=== PATIENT | female | born 1930 | race Caucasian/White ===

== ENCOUNTER → 2017-10-26 | Outpatient (CLI) | payer MEDICARE, BC ==
[~2017-10-26] MED LIST: ADVIL200 MG PO; CITRACAL + D CA1 TAB PO; MOTRIN 800800 MG/TAB PO; SENNA8.6 MG PO
[2017-10-26 17:00] LABS: BASO # 0.1 (0.0-0.2); BASO % 1.4 % (0.0-2.0); EOS # 0.3 (0.0-0.7); EOS % 3.1 % (0-4.0); GRAN # 5.5 (1.4-6.5); GRAN % 63.6 % (42.2-75.2); HEMATOCRIT 41.7 % (37.0-47.0); HEMOGLOBIN 14.2 g/dl (12.5-16.0); LYMPH # 1.9 (1.2-3.4); LYMPH % 22.4 % (20.0-51.0); MEAN CELL VOLUME 94 fl (80.0-100.0); MEAN CORPUSCULAR HEMOGLOBIN 32 pg (27.0-31.0); MEAN CORPUSCULAR HGB CONC 34 g/dl (33.0-37.0); MEAN PLATELET VOLUME 10.8 fl (7.4-10.4); MONO # 0.8 (0.1-0.6); MONO % 9.3 % (1.7-9.3); PLATELET COUNT 262 K/mm3 (130-400); RED BLOOD COUNT 4.42 M/mm3 (4.10-5.30); WHITE BLOOD COUNT 8.6 K/mm3 (4.8-10.8)
[2017-10-26 17:06] LABS: ADJUSTED CALCIUM 10.1 mg/dL (8.4-10.2); ALBUMIN 3.8 gm/dL (3.5-5.0); BILIRUBIN,TOTAL 0.6 mg/dL (0.0-1.0); CALCIUM 9.9 mg/dL (8.4-10.2); CREATININE, serum 0.83 mg/dL (0.52-1.25); MAGNESIUM 2.1 mg/dL (1.6-2.3); POTASSIUM 4.2 mmol/L (3.4-5.0)
== END ==
LOC: ZCOL.LAB 16:55
PROVIDERS: Internal Medicine
DX: R00.0 Tachycardia, unspecified (principal)

== ENCOUNTER → 2019-10-15 | Outpatient (CLI) | payer MEDICARE, BC ==
[2019-10-15 16:48] LABS: BASO # 0.1 (0.0-0.2); BASO % 0.8 % (0.0-2.0); EOS # 0.2 (0.0-0.7); EOS % 1.5 % (0-4.0); GRAN # 6.2 (1.4-6.5); GRAN % 62.3 % (42.2-75.2); HEMOGLOBIN 14.1 g/dl (12.5-16.0); LYMPH # 2.5 (1.2-3.4); LYMPH % 24.9 % (20.0-51.0); MEAN CELL VOLUME 96 fl (80.0-100.0); MEAN CORPUSCULAR HEMOGLOBIN 32 pg (27.0-31.0); MEAN CORPUSCULAR HGB CONC 34 g/dl (33.0-37.0); MONO % 10.3 % (1.7-9.3); PLATELET COUNT 244 K/mm3 (130-400); RED BLOOD COUNT 4.39 M/mm3 (4.10-5.30); REDCELL DISTRIBUTION WIDTH-CV 12.3 % (11.5-14.5)
[2019-10-15 16:59] LABS: ALBUMIN 3.7 gm/dL (3.5-5.0); BILIRUBIN,TOTAL 0.4 mg/dL (0.0-1.0); CALCIUM 10.1 mg/dL (8.4-10.2); CREATININE, serum 0.92 (0.52-1.25); POTASSIUM 4.1 mmol/L (3.4-5.0); TOTAL PROTEIN 6.7 gm/dL (6.4-8.2)
[2019-10-15 17:14] LABS: TROPONIN-I < 0.012 ng/mL (0.000-0.035)
[2019-10-15 17:29] LABS: THYROID STIMULATING HORMONE 3.2 uIU/mL (0.465-4.680)
== END ==
LOC: ZCOL.LAB 16:31
PROVIDERS: Nurse Practitioner Family
DX: I48.91 Unspecified atrial fibrillation (principal)

== ENCOUNTER → 2019-10-18 | Outpatient (CLI) | payer MEDICARE, BC | LOC: COL.VAS 08:25 | DX: I48.91 Unspecified atrial fibrillation (principal); I08.3 Combined rheumatic disorders of mitral, aortic and tricuspid valves ==

== ENCOUNTER 2019-11-09 13:33 | Inpatient (IN) | payer MEDICARE, BC ==
[2019-11-09] VITALS (172 sets, daily range): BP systolic 112–117; BP diastolic 80–97; PULSE 77–83; TEMP 97.4–98.3; O2SAT 60–100
[~2019-11-09] VITALS: Ht 162.6 cm; Wt 68.0 kg
[2019-11-09 14:39] LABS: BASO # 0.1 (0.0-0.2); BASO % 0.5 % (0.0-2.0); EOS # 0.2 (0.0-0.7); EOS % 1.3 % (0-4.0); GRAN # 8.2 (1.4-6.5); GRAN % 70.7 % (42.2-75.2); HEMATOCRIT 41.2 % (37.0-47.0); HEMOGLOBIN 13.9 g/dl (12.5-16.0); LYMPH % 17.4 % (20.0-51.0); MEAN CELL VOLUME 95 fl (80.0-100.0); MEAN CORPUSCULAR HEMOGLOBIN 32 pg (27.0-31.0); MEAN CORPUSCULAR HGB CONC 34 g/dl (33.0-37.0); MEAN PLATELET VOLUME 10.4 fl (7.4-10.4); MONO # 1.1 (0.1-0.6); MONO % 9.8 % (1.7-9.3); PLATELET COUNT 242 K/mm3 (130-400); RED BLOOD COUNT 4.34 M/mm3 (4.10-5.30); REDCELL DISTRIBUTION WIDTH-CV 12.2 % (11.5-14.5)
[2019-11-09 14:43] LABS: INR 1.5 (0.8-3.0); PROTHROMBIN TIME 18.3 SECONDS (9.7-12.8)
[2019-11-09 15:02] LABS: ALANINE AMINOTRANSFERASE 7 U/L (9-52); ALKALINE PHOSPHATASE 55 U/L (50-136); ANION GAP 12 mmol/L (7-16); AST,SGOT 27 U/L (15-37); BILIRUBIN,TOTAL 0.8 mg/dL (0.0-1.0); BLOOD UREA NITROGEN 23 mg/dL (7-17); CARBON DIOXIDE 22 mmol/L (22-30); CHLORIDE 105 mmol/L (98-107); CREATININE, serum 0.95 (0.52-1.25); GLUCOSE 118 mg/dL (74-106); POTASSIUM 3.6 mmol/L (3.4-5.0); SODIUM 139 mmol/L (137-145); TOTAL PROTEIN 7.6 gm/dL (6.4-8.2)
[2019-11-09 15:15] LABS: TROPONIN-I < 0.012 ng/mL (0.000-0.035)
[2019-11-09] MEDS ORDERED: ELIQUIS 5MG PO ×2 (18:16→18:25)
[2019-11-09] MEDS ORDERED: TOPROL XL 50MG50 MG PO ×2 (18:26→18:27)
[2019-11-09] MEDS ORDERED: LASIX 20MG TABL20 MG PO (18:27)
--- NOTE | 2019-11-09 19:30 | NUR ---
Bedside report received from ZENON Alfonso
--- NOTE | 2019-11-09 20:00 | NUR ---
Patient alert and oriented x4, sitting up in bed talking with her daughter. Patient has no complaints of pain, just some tenderness in her abdomen when palpated, but she will not give it a number for pain. Assessment complete. Lungs are clear bilaterally in all smith. HR and rhythm are regular with normal S1 and S2 heard. Patient is in SR and has been since 1900 at the start of this shift. Bowel sounds active x4. Peripheral pulses are palpable in all extremities. No edema noted. [place] [place] are strong and equal bilaterally. Patient has no current needs at this time. Will continue to monitor. Call light within reach.
[2019-11-10] VITALS (330 sets, daily range): BP systolic 92–141; BP diastolic 50–81; PULSE 63–91; TEMP 97–98.4; O2SAT 76–98
--- NOTE | 2019-11-10 | NUR ---
Patient asleep but awakens easily to name. Vitals obtained and remain stable. Medication given. Patient has no complaints of pain. Requests to use the restroom. Patient is standby assist to the bathroom. Patient returns to bed and has no further needs at this time. Will continue to monitor. Call light within reach.
--- NOTE | 2019-11-10 04:00 | NUR ---
Patient asleep but awakens to name. Vitals obtained and remain stable. Patient has been sleeping comfortably. No complaints of pain. Fresh water provided. No further needs at this time. Will continue to monitor. Call light within reach.
[2019-11-10 05:49] LABS: BASO # 0.1 (0.0-0.2); BASO % 0.9 % (0.0-2.0); EOS # 0.2 (0.0-0.7); EOS % 2.5 % (0-4.0); GRAN # 5.1 (1.4-6.5); HEMOGLOBIN 12.1 g/dl (12.5-16.0); LYMPH # 2.2 (1.2-3.4); LYMPH % 25.3 % (20.0-51.0); MEAN CELL VOLUME 95 fl (80.0-100.0); MEAN CORPUSCULAR HEMOGLOBIN 33 pg (27.0-31.0); MEAN CORPUSCULAR HGB CONC 34 g/dl (33.0-37.0); MEAN PLATELET VOLUME 10.8 fl (7.4-10.4); MONO % 11.1 % (1.7-9.3); PLATELET COUNT 197 K/mm3 (130-400); REDCELL DISTRIBUTION WIDTH-CV 12.3 % (11.5-14.5)
[2019-11-10 05:56] LABS: ALBUMIN 3.2 gm/dL (3.5-5.0); BILIRUBIN,TOTAL 0.7 mg/dL (0.0-1.0); CALCIUM 8.3 mg/dL (8.4-10.2); CREATININE, serum 0.79 (0.52-1.25); PHOSPHOROUS 2.1 mg/dL (2.5-4.5); POTASSIUM 3.9 mmol/L (3.4-5.0); TOTAL PROTEIN 6.3 gm/dL (6.4-8.2)
[2019-11-10 06:34] LABS: HEMATOCRIT 35.2 % (37.0-47.0)
--- NOTE | 2019-11-10 07:00 | NUR ---
Bedside report given to ZENON Alfonso
--- NOTE | 2019-11-10 17:25 | NUR ---
Plan: To return home with her daughter Luz Maria as care support [phone]. Patient also lists Luz Maria as her EMR and her DPOA. Patient resides in [facility] in [facility]. Assess: Sw met with Patient with daughter by her bedside. Patient gave permission to discuss information in front of her daughter. patient reports that she does not use DME, and that her PCP is Dr. Jordan. Patient indicated that she does have an upcoming appointment in a few weeks, however she did not know the exact date. Patient reports that she receives her medications from [facility], [place] [facility] with no concerns. Patient reports that she has an upcoming appt for a stress test, and that she is interest in [facility] through [facility] Plan: SW will follow and contact [facility] for referral for [facility]. SW will continue to follow.
--- NOTE | 2019-11-10 18:44 | NUR ---
Pt independent in room today, telemetry box utilized, no complaints all day. Daughter has been coming and going throughout the day. Medical-Transfer orders have been established since AM - unable to transfer d/t availability - pt and daughter aware
--- NOTE | 2019-11-10 19:05 | NUR ---
Bowel Movements X2 with no hematochezia observed
--- NOTE | 2019-11-10 19:10 | NUR ---
Bedside report received from ZENON Alfonso
--- NOTE | 2019-11-10 20:00 | NUR ---
Patient alert and oriented x4. Sitting up in bed talking with her daughter, Luz Maria, at the bedside. No complaints of pain, states she is feeling good. Assessment complete. Lungs are clear bilaterally in all smith. HR and rhythm are regular with normal S1 and S2. Bowel sounds active x4. Patient ate most of her dinner. All peripheral pulses are palpable. No edema noted. Patient has no further needs at this time. Will continue to monitor. Call light within reach.
[2019-11-11] VITALS: BP 132/73; PULSE 100; TEMP 97.5
--- NOTE | 2019-11-11 | NUR ---
Patient asleep at enterance into the room. Awakens easily to name. Vitals obtained and remain stable. No complaints of pain. No further needs at this time. Will continue to monitor. Call light within reach.
[2019-11-11 04:00] VITALS: BP 151/92; PULSE 102; TEMP 97.7
--- NOTE | 2019-11-11 04:00 | NUR ---
Patient awake at this time and requesting to get up and use the restroom. Standby assist. Patient then proceeds to walk around the room for a little bit independently. Requests to brush her teeth. Assisted with finding her toothbrush in her belongings. Patient performs oral care independently and returns to bed. Patient wishes to sit at the side of the bed for a while. Vitals obtained. Call light within reach. Will continue to monitor.
[2019-11-11 06:13] LABS: BASO # 0.1 (0.0-0.2); EOS # 0.3 (0.0-0.7); EOS % 3.3 % (0-4.0); GRAN # 5.1 (1.4-6.5); GRAN % 66.1 % (42.2-75.2); HEMATOCRIT 38.1 % (37.0-47.0); HEMOGLOBIN 12.9 g/dl (12.5-16.0); LYMPH # 1.5 (1.2-3.4); LYMPH % 19.1 % (20.0-51.0); MEAN CELL VOLUME 96 fl (80.0-100.0); MEAN CORPUSCULAR HEMOGLOBIN 32 pg (27.0-31.0); MEAN CORPUSCULAR HGB CONC 34 g/dl (33.0-37.0); MEAN PLATELET VOLUME 10.1 fl (7.4-10.4); MONO # 0.8 (0.1-0.6); PLATELET COUNT 205 K/mm3 (130-400); RED BLOOD COUNT 3.99 M/mm3 (4.10-5.30)
[2019-11-11 06:21] LABS: ALBUMIN 3.5 gm/dL (3.5-5.0); BILIRUBIN,TOTAL 0.7 mg/dL (0.0-1.0); CALCIUM 8.6 mg/dL (8.4-10.2); CREATININE, serum 0.84 (0.52-1.25); MAGNESIUM 2.1 mg/dL (1.6-2.3); POTASSIUM 3.5 mmol/L (3.4-5.0); TOTAL PROTEIN 6.6 gm/dL (6.4-8.2)
--- NOTE | 2019-11-11 07:14 | NUR ---
Bedside report given to ZENON Lara
--- NOTE | 2019-11-11 07:14 | NUR ---
Report recieved from Amina YARBROUGH. This RN into room, patient laying in bed, awake and watching TV. Denies complaints at this time. Call light at side.
[2019-11-11 08:00] VITALS: BP 147/82; PULSE 72; TEMP 97.4
[2019-11-11 12:00] VITALS: PULSE 94; TEMP 98.2
[2019-11-11] MEDS ORDERED: PROTONIX 40MG T40 MG PO (14:13)
[2019-11-11] MEDS ORDERED: LASIX 20MG TABL20 MG PO (14:13)
[2019-11-11] MEDS ORDERED: CIPRO 500MG TA500 MG PO (14:14)
[2019-11-11] MEDS ORDERED: FLAGYL500 MG PO (14:15)
--- NOTE | 2019-11-11 15:55 | NUR ---
IV discontinued and patient dresses self for discharge. Daughter at bedside. Discharge instructions and teaching done, voices understanding. Reviewed medications; doses and changes, voices understanding. Patient knows, and agrees, to call PCP and Dr. White for follow up appointments tomorrow. 1620-Ambulatory to [facility] with daughter driving.
== END 2019-11-11 16:20 | disposition home or self-care (01) | DRG 308 ==
LOC: COL.ER 13:33 → ICU 17:32
PROVIDERS: Nurse Practitioner; ADMIT Family Medicine
DX: I48.0 Paroxysmal atrial fibrillation (principal); K57.91 Diverticulosis of intestine, part unspecified, without perforation or abscess with bleeding; H91.90 Unspecified hearing loss, unspecified ear; D64.9 Anemia, unspecified; I10 Essential (primary) hypertension; Z88.0 Allergy status to penicillin; Z88.8 Allergy status to other drugs, medicaments and biological substances
CPT/HCPCS: 99222-AI; 99233-AI; 99239; J1956; J7030; Q9967

== ENCOUNTER → 2020-11-21 | Outpatient (CLI) | payer MEDICARE, BC ==
[~2020-11-21] MED LIST changes: +CIPRO 500MG TA500 MG PO; +ELIQUIS 5MG PO; +FLAGYL500 MG PO; +LASIX 20MG TABL20 MG PO; +PROTONIX 40MG T40 MG PO; +TOPROL XL 50MG50 MG PO
[2020-11-21 16:39] LABS: BASO # 0.1 (0.0-0.2); EOS # 0.2 (0.0-0.7); GRAN # 5.8 (1.4-6.5); GRAN % 66.6 % (42.2-75.2); HEMATOCRIT 40.1 % (37.0-47.0); HEMOGLOBIN 13.6 g/dl (12.5-16.0); LYMPH # 1.8 (1.2-3.4); MEAN CELL VOLUME 96 fl (80.0-100.0); MEAN CORPUSCULAR HEMOGLOBIN 32 pg (27.0-31.0); MEAN CORPUSCULAR HGB CONC 34 g/dl (33.0-37.0); MEAN PLATELET VOLUME 10.9 fl (7.4-10.4); MONO # 0.8 (0.1-0.6); MONO % 9.1 % (1.7-9.3); PLATELET COUNT 253 K/mm3 (130-400); REDCELL DISTRIBUTION WIDTH-CV 12.2 % (11.5-14.5)
[2020-11-21 16:46] LABS: BILIRUBIN,TOTAL 0.6 mg/dL (0.0-1.0); CALCIUM 9.4 mg/dL (8.4-10.2); POTASSIUM 4.2 mmol/L (3.4-5.0); TOTAL PROTEIN 6.9 gm/dL (6.4-8.2)
[2020-11-21 17:16] LABS: THYROID STIMULATING HORMONE 2.16 uIU/mL (0.465-4.680)
== END ==
LOC: ZCOL.LAB 16:17
PROVIDERS: Nurse Practitioner Family
DX: I48.91 Unspecified atrial fibrillation (principal)